=== PATIENT | male | born 1990 | race Hispanic/Latino ===

== ENCOUNTER 2018-05-29 19:06 | Emergency (ER) | payer SELFPAY ==
[~2018-05-29] VITALS: Ht 160 cm; Wt 63.0 kg
[2018-05-29] MEDS ORDERED: DEBROX6.5 % AU (20:03)
[2018-05-29 20:14] VITALS: BP 140/72
== END 2018-05-29 20:15 | disposition home or self-care (01) | DRG 156 ==
LOC: ED 19:06
PROC: 3E1B78Z Irrigation of Ear using Irrigating Substance, Via Natural or Artificial Opening (ICD-10-PCS; principal; 2018-05-29)
DX: H61.22 Impacted cerumen, left ear (principal); H91.92 Unspecified hearing loss, left ear; W50.0XXA Accidental hit or strike by another person, initial encounter; Y93.67 Activity, basketball; Y92.830 Public park as the place of occurrence of the external cause

== ENCOUNTER 2021-06-10 17:11 | Emergency (ER) | payer SELFPAY ==
[~2021-06-10] VITALS: Ht 160 cm; Wt 60.0 kg
[~2021-06-10 17:11] MED LIST: DEBROX6.5 % AU
[2021-06-10 18:23] LABS: HEMATOCRIT 35.8 % (39.0-50.0); HEMOGLOBIN 12.3 g/dl (14.0-18.0); IMMATURE GRANULOCYTES 0.2 % (0.0-5.0); MEAN CELL VOLUME 99.7 fL CALC (80.0-100.0); MEAN CORPUSCULAR HGB 34.3 pG CALC (26.0-32.0); MEAN CORPUSCULAR HGB CONC 34.4 g/dL CAL (32.0-36.0); NEUT# 1.89 thou/uL (1.82-7.42); RED BLOOD COUNT 3.59 mill/uL (4.70-6.10); RED CELL DISTRI WIDTH 12.1 % (11.5-15.5)
[2021-06-10 18:39] LABS: ALBUMIN 4.3 g/dL (3.2-5.0); ALKALINE PHOSPHATASE 132 u/l (38-126); ANION GAP 17 (6-22 (CALC)); BILIRUBIN, TOTAL 0.6 mg/dL (0.0-1.4); BUN 3 mg/dL (9-20); BUN/CREATININE RATIO 7 (12-20 (CALC)); CARBON DIOXIDE 25 mmol/l (22-30); CHLORIDE 98 mmol/l (95-108); CREATININE 0.5 mg/dL (0.7-1.3); GFR > 60 ML/MIN (>=60 (CALC)); GFR FOR AFR.AMER. > 60 ML/MIN (>=60 (CALC)); POTASSIUM 3.7 mmol/l (3.5-5.1); SGOT/AST 133 u/l (17-59); SODIUM 135 mmol/l (137-146); TOTAL PROTEIN 7.9 g/dL (6.3-8.2)
[2021-06-10 18:49] LABS: ETHYL ALCOHOL 354 mg/dl (0-30)
[2021-06-10 19:11] LABS: URINE BILIRUBIN - DIPSTICK NEGATIVE (NEGATIVE); URINE BLOOD DIPSTICK NEGATIVE (NEGATIVE); URINE COLOR YELLOW; URINE GLUCOSE - DIPSTICK NEGATIVE (NEGATIVE); URINE KETONE NEGATIVE (NEGATIVE); URINE LEUK ESTERASE NEGATIVE (NEGATIVE); URINE PROTEIN - DIPSTICK NEGATIVE (NEG-TRACE); URINE SPECIFIC GRAVITY <=1.005; URINE UROBILINOGEN - DIPSTICK 0.2 E.U./dL (0.2)
[2021-06-10 19:15] LABS: URINE NITRITE - DIPSTICK NEGATIVE (Negative)
[2021-06-11 07:07] VITALS: BP 148/88
== END 2021-06-11 07:10 | disposition home or self-care (01) | DRG 605 ==
LOC: ED 17:11
DX: S00.83XA Contusion of other part of head, initial encounter (principal); S00.81XA Abrasion of other part of head, initial encounter; F10.129 Alcohol abuse with intoxication, unspecified; V18.0XXA Pedal cycle driver injured in noncollision transport accident in nontraffic accident, initial encounter; Y93.55 Activity, bike riding